=== PATIENT | male | born 1985 | race Caucasian/White ===

== ENCOUNTER 2024-02-04 11:03 | Emergency (ER) | payer SELFPAY | END 2024-02-04 12:05 | disposition home or self-care (01) | LOC: LB.ED 11:03 | DX: S91.332A Puncture wound without foreign body, left foot, initial encounter (principal); F17.210 Nicotine dependence, cigarettes, uncomplicated; W45.0XXA Nail entering through skin, initial encounter | CPT/HCPCS: 73620-LT; 99283 ==